=== PATIENT | female | born 1990 | race African-American/Black ===

== ENCOUNTER 2018-09-30 18:06 | Emergency (ER) | payer BC, MEDICAID ==
[~2018-09-30] VITALS: Ht 154.9 cm; Wt 93.0 kg
[2018-09-30 23:03] LABS: CHLORIDE 105 mEq/L (98-107)
[2018-09-30 23:04] LABS: BASOPHILS % 0.7 % (0.0-2.0); EOSINOPHILS % 1.7 % (0.0-5.0); HEMATOCRIT. 39.8 % (36.0-48.0); HEMOGLOBIN. 13.2 g/dL (12.0-16.0); LYMPHOCYTES % 29.6 % (20.0-50.0); MEAN CORPUSCULAR HEMOGLOBIN 29.2 pg (28.0-32.0); MEAN CORPUSCULAR VOLUME 88.1 fL (81.0-99.0); MEAN PLATELET VOLUME 8.9 fl (7.4-10.4); MONOCYTES % 5.3 % (2.0-8.0); NEUTROPHILS % 62.7 % (40.0-76.0); PLATELET 309 x1000/uL (130-400); RED BLOOD CELL COUNT 4.51 mill/uL (4.2-5.4); RED CELL DISTRIBUTION WIDTH 12.9 % (11.6-14.6)
[2018-10-01 00:31] VITALS: BP 134/81
[2018-10-01] MEDS ORDERED: IOHEXOL-350 100 ML BOTTLE ONE (01:28)
== END 2018-10-01 02:53 | disposition home or self-care (01) ==
LOC: ER 18:06
DX: R22.0 Localized swelling, mass and lump, head (principal); Y08.89XA Assault by other specified means, initial encounter
CPT/HCPCS: 36415; 70498; 80048; 81025; 85025; 99284; Q9967

== ENCOUNTER 2020-08-11 15:04 | Emergency (ER) | payer MEDICAID ==
[~2020-08-11] VITALS: Ht 154.9 cm; Wt 91.0 kg
[2020-08-11 15:32] VITALS: BP 152/84
== END 2020-08-11 17:24 | disposition home or self-care (01) ==
LOC: ER 15:04
DX: H61.21 Impacted cerumen, right ear (principal)
CPT/HCPCS: 69210; 99284